=== PATIENT | male | born 1950 | race Caucasian/White ===

== ENCOUNTER 2018-07-07 10:53 | Emergency (ER) | payer MEDICARE, BC, SELFPAY ==
[2018-07-07 11:04] VITALS: BP 149/84; PULSE 67; RESP 18; TEMP 37.2; O2SAT 98
--- NOTE | 2018-07-07 11:09 | DI.RAD_ITS ---
SYMPTOM/DIAGNOSIS: FALL. PAIN TO DISTAL RADIUS LEFT WRIST: 07/07/18 Five views were obtained. There are marked degenerative changes of the carpus most prominent involving greater multangular first metacarpal joint. There is an osseous density projected over the dorsum of the carpus on the lateral view probably originating from the proximal carpal row. This may represent an old or acute injury. Clinical correlation requested regarding the exact site of the patient's injury. If clinically indicated, additional evaluation with CT could be considered to evaluate the carpal anatomy.
--- NOTE | 2018-07-07 11:09 | DI.RAD_ITS ---
SYMPTOM/DIAGNOSIS: FALL LEFT FOREARM: 07/07/18 Two views were obtained. No fracture is seen.
--- NOTE | 2018-07-07 11:11 | W.ED.GENAD ---
Discharge Plan Disposition Patient Disposition: HOME Condition: Stable Discharge Details Chief Complaint: Orthopedic Clinical Impression: Cellulitis Primary Care Provider: Stacey,Local ED Provider: Jose Eduardo Cummings Home Meds and New Rx's Prescriptions: New cephalexin [Keflex] 500 mg capsule 500 mg PO QID Qty: 27 RF: 0 Continued rosuvastatin [Crestor] 10 mg Tablet 10 mg PO DAILY RF: 0 multivitamin Tablet 1 tab PO DAILY RF: 0 ascorbic acid (vitamin C) [Vitamin C] 500 mg Tablet 500 mg PO DAILY RF: 0 aspirin [Aspir-81] 81 mg Tablet,Delayed Release (Dr/Ec) 81 mg PO DAILY RF: 0 zinc 50 mg Tablet PO DAILY RF: 0 Discharge Instructions Instructions: Cellulitis (ED) Additional Instructions: Please take your antibiotics as prescribed and return to the emergency department immediately for any new or significant worsening of symptoms including rapid spread of redness. Otherwise if symptoms are remaining stable and improving recommend follow-up with your primary care provider in the next 2-3 days Referrals: Primary Care Provider [Outside] (Please follow-up with your local [place] clinic) Discharge Data Discharge Date/Time-TO BE ENTERED AT DEPARTURE: 07/07/18 14:40 Medical Decision Making Patient presenting the emergency department for chief complaint of left wrist pain. Patient states on Saturday he had a fall on outstretched hand but had full range of motion and movement of the extremity after the fall. Then beginning yesterday evening he started having worsening discomfort and noted redness to the extremity. This has significantly worsened along with swelling and discomfort since yesterday evening. Patient denies any fever chills, other injury or trauma. Physical exam shows a erythematous swollen left wrist with pain to anatomical snuffbox along with pain to palpation of distal radius. Exam is otherwise unremarkable. Concern for acute fracture incised probability but given the patient stated normal range of motion and felt that it was a minor injury with then progressive swelling and erythema to the area cellulitis is also considered. Plan to check radiological imaging to rule out acute fracture and CBC to evaluate for possible cellulitis while I feel that this is less likely. Pending results patient given [place]. Review of radiological imaging and speaking with radiologist shows a possible bone fragment noted in the wrist and recommendation for CT imaging. Review of labs does show some concern for left shift. Reassessed hand and erythema continues to be present and upper forearm there is a continued concern for cellulitis. CT image of the wrist and forearm show no acute fracture and what appears to be an ossicle. Main concern is for cellulitis so patient placed up on Keflex 500 mg 4 times daily for 1 week and informed to follow-up with his local [place] clinic in the next 2-3 days for reassessment or return to emergency department immediately for reassessment for worsening symptoms that were thoroughly discussed with patient and family. After discussion of diagnosis and plan of care patient is no further needs, questions, or concerns and states clear understanding to return to the emergency department for any worsening symptoms. HPI General Mode of arrival: ambulatory. Date/Time Provider Initiated Documentation: 07/07/18 11:09. Limitations to Documentation: no limitations. Information obtained by: patient, family and RN notes reviewed. History of Present Illness 68 year old M presents to the emergency department with the chief complaint of Left wrist pain, described as severe, with intensity rated at >10. Quality is described as sharp and constant, and is localized to the left and upper extremity. Patient started experiencing this day(s) (3) and it has been constant. No relieving factors improve symptom(s), Movement worsens symptoms . Patient notes no other symptoms.. Related Data Home Medications Medication Instructions Recorded Confirmed ascorbic acid (vitamin C) [Vitamin 500 mg PO DAILY 07/07/18 07/07/18 C] aspirin [Aspir-81] 81 mg PO DAILY 07/07/18 07/07/18 cephalexin [Keflex] 500 mg PO QID #27 cap NS 07/07/18 multivitamin 1 tab PO DAILY 07/07/18 07/07/18 rosuvastatin [Crestor] 10 mg PO DAILY 07/07/18 07/07/18 zinc PO DAILY 07/07/18 Previous Rx's Medication Instructions Recorded cephalexin [Keflex] 500 mg PO QID #27 cap NS 07/07/18 Allergies Allergy/AdvReac Type Severity Reaction Status Date / Time No Known Allergies Allergy Unverified 07/07/18 11:13 General Stated Complaint: Trauma JAIRO: 3 Review of Systems Cardiovascular Denies syncope Musculoskeletal Reports as per HPI, Denies numbness and Denies tingling Integumentary/Breasts Reports erythema, Denies sores and Denies wounds Neurologic Denies syncope, Denies numbness and Denies tingling [facility] Medical History Hyperlipidemia (Chronic) Hypertension (Chronic) Social History Smoking/Tobacco Use Status: Former Tobacco Use Drug use: Rarely Substance use type: marijuana Do you feel safe at home: Yes Do you feel safe in your relationship?: Yes Exam Const General: cooperative and no acute distress Orientation: alert, awake and oriented x3 Resp Effort & Inspection: normal respiratory effort and able to speak in complete sentences Cardio Rate: regular rate Rhythm: regular rhythm Extrem Right upper extremity: normal to inspection Left upper extremity: elbow/forearm Details: normal to inspection and normal ROM; no tenderness and wrist Details: tenderness Location: of the distal radius, of the anatomic snuffbox and of the dorsal wrist, swelling Location: of the dorsal wrist and of the volar wrist, abnormal ROM Details: pain with active ROM and with range as follows (Patient has decreased flexion and extension of his wrist), warmth, normal vascular exam and radial pulse present; no abrasions, no lacerations, no ecchymosis and no penetrating wound
[2018-07-07] MEDS: HYDROcodone 5/Acetaminophen 325 TAB PO ×2 (11:15→14:38)
--- NOTE | 2018-07-07 11:16 | ED.GENADUL_ITS ---
Discharge Plan Disposition Patient Disposition: HOME Condition: Stable Discharge Details Chief Complaint: Orthopedic Clinical Impression: Cellulitis Primary Care Provider: Stacey,Local ED Provider: Jose Eduardo Cummings Home Meds and New Rx's Prescriptions: New cephalexin [Keflex] 500 mg capsule 500 mg PO QID Qty: 27 RF: 0 Continued rosuvastatin [Crestor] 10 mg Tablet 10 mg PO DAILY RF: 0 multivitamin Tablet 1 tab PO DAILY RF: 0 ascorbic acid (vitamin C) [Vitamin C] 500 mg Tablet 500 mg PO DAILY RF: 0 aspirin [Aspir-81] 81 mg Tablet,Delayed Release (Dr/Ec) 81 mg PO DAILY RF: 0 zinc 50 mg Tablet PO DAILY RF: 0 Discharge Instructions Instructions: Cellulitis (ED) Additional Instructions: Please take your antibiotics as prescribed and return to the emergency department immediately for any new or significant worsening of symptoms including rapid spread of redness. Otherwise if symptoms are remaining stable and improving recommend follow-up with your primary care provider in the next 2- 3 days Referrals: Primary Care Provider [Outside] (Please follow-up with your local [place] clinic) Discharge Data Discharge Date/Time-TO BE ENTERED AT DEPARTURE: 07/07/18 14:40 Medical Decision Making Patient presenting the emergency department for chief complaint of left wrist pain. Patient states on Saturday he had a fall on outstretched hand but had full range of motion and movement of the extremity after the fall. Then beginning yesterday evening he started having worsening discomfort and noted redness to the extremity. This has significantly worsened along with swelling and discomfort since yesterday evening. Patient denies any fever chills, other injury or trauma. Physical exam shows a erythematous swollen left wrist with pain to anatomical snuffbox along with pain to palpation of distal radius. Exam is otherwise unremarkable. Concern for acute fracture incised probability but given the patient stated normal range of motion and felt that it was a minor injury with then progressive swelling and erythema to the area cellulitis is also considered. Plan to check radiological imaging to rule out acute fracture and CBC to evaluate for possible cellulitis while I feel that this is less likely. Pending results patient given [place]. Review of radiological imaging and speaking with radiologist shows a possible bone fragment noted in the wrist and recommendation for CT imaging. Review of labs does show some concern for left shift. Reassessed hand and erythema continues to be present and upper forearm there is a continued concern for cellulitis. CT image of the wrist and forearm show no acute fracture and what appears to be an ossicle. Main concern is for cellulitis so patient placed up on Keflex 500 mg 4 times daily for 1 week and informed to follow-up with his local [place] clinic in the next 2-3 days for reassessment or return to emergency department immediately for reassessment for worsening symptoms that were thoroughly discussed with patient and family. After discussion of diagnosis and plan of care patient is no further needs, questions, or concerns and states clear understanding to return to the emergency department for any worsening symptoms. HPI General Mode of arrival: ambulatory . Date/Time Provider Initiated Documentation: 07/07/18 11:09 . Limitations to Documentation: no limitations . Information obtained by: patient, family and RN notes reviewed . History of Present Illness 68 year old M presents to the emergency department with the chief complaint of Left wrist pain, described as severe, with intensity rated at >10. Quality is described as sharp and constant, and is localized to the left and upper extremity. Patient started experiencing this day(s) (3) and it has been constant. No relieving factors improve symptom(s), Movement worsens symptoms . Patient notes no other symptoms.. Related Data Home Medications Medication Instructions Recorded Confirmed ascorbic acid (vitamin C) [Vitamin 500 mg PO DAILY 07/07/18 07/07/18 C] aspirin [Aspir-81] 81 mg PO DAILY 07/07/18 07/07/18 cephalexin [Keflex] 500 mg PO QID #27 cap NS 07/07/18 multivitamin 1 tab PO DAILY 07/07/18 07/07/18 rosuvastatin [Crestor] 10 mg PO DAILY 07/07/18 07/07/18 zinc PO DAILY 07/07/18 Previous Rx's Medication Instructions Recorded cephalexin [Keflex] 500 mg PO QID #27 cap NS 07/07/18 Allergies Allergy/AdvReac Type Severity Reaction Status Date / Time No Known Allergies Allergy Unverified 07/07/18 11:13 General Stated Complaint: Trauma JAIRO: 3 Review of Systems Cardiovascular Denies syncope Musculoskeletal Reports as per HPI, Denies numbness and Denies tingling Integumentary/Breasts Reports erythema, Denies sores and Denies wounds Neurologic Denies syncope, Denies numbness and Denies tingling [facility] Medical History Hyperlipidemia (Chronic) Hypertension (Chronic) Social History Smoking/Tobacco Use Status: Former Tobacco Use Drug use: Rarely Substance use type: marijuana Do you feel safe at home: Yes Do you feel safe in your relationship?: Yes Exam Const General: cooperative and no acute distress Orientation: alert, awake and oriented x3 Resp Effort & Inspection: normal respiratory effort and able to speak in complete sentences Cardio Rate: regular rate Rhythm: regular rhythm Extrem Right upper extremity: normal to inspection Left upper extremity: elbow/forearm Details: normal to inspection and normal ROM; no tenderness and wrist Details: tenderness Location: of the distal radius, of the anatomic snuffbox and of the dorsal wrist, swelling Location: of the dorsal wrist and of the volar wrist, abnormal ROM Details: pain with active ROM and with range as follows (Patient has decreased flexion and extension of his wrist), warmth, normal vascular exam and radial pulse present; no abrasions, no lacerations, no ecchymosis and no penetrating wound
[2018-07-07 11:39] LABS: Abs Immature Grans 0.02 k/cumm (0.0-0.09); Absolute Basophil Count 0.03 k/cumm (0.0-0.2); Absolute Eosinophil Count 0.08 k/cumm (0.0-0.7); Absolute Lymphocyte Count 1.12 k/cumm (1.2-3.4); Absolute Monocyte Count 1.01 k/cumm (0.11-0.7); Absolute Neutrophil Count 7.94 k/cumm (1.2-6.7); Basophils % 0.3; Eosinophils % 0.8; HCT 41.4 % (40.0-50.0); HGB 14.2 g/dL (13.5-17.5); Immature Grans % 0.2; Mean Corp. HGB Concentration 34.3 g/dL (32.0-36.0); Mean Corpuscular Hemoglobin 31.7 pg (27.0-33.0); Mean Corpuscular Volume 92.4 fL (80-95); Mean Platelet Volume 11.6 fL (8.0-11.0); Monocytes % 9.9; Neutrophils % 77.8; Platelet Count 139 x1000/uL (130-400); RBC 4.48 m/cumm (4.50-6.00); RBC Distribution Width 12.1 % (11.8-14.1)
--- NOTE | 2018-07-07 12:43 | DI.CT_ITS ---
SYMPTOM/DIAGNOSIS: FELL, LT WRIST PAIN LEFT WRIST CT: CT examination of the wrist was performed utilizing multi slice acquisition and multi planar reconstruction. There are degenerative changes of the carpus, most marked at the greater multangular first metacarpal joint. No acute fracture is identified. There is a well corticated, dorsally located ossicle adjacent to the lunate near the navicular lunate joint which appears to correspond with the osseous fragment identified on plain films. This does not represent an acute fracture. CONCLUSION: No evidence of acute carpal fracture.
[2018-07-07] MEDS: Cephalexin 500 MG CAP PO (14:39)
== END 2018-07-07 14:40 | disposition home or self-care (01) ==
PROVIDERS: Emergency Provider Nurse Practitioner Family
DX: L03.114 Cellulitis of left upper limb (principal); R60.0 Localized edema; W18.30XA Fall on same level, unspecified, initial encounter; I10 Essential (primary) hypertension
CPT/HCPCS: 36415; 99284; 73090; 73110; 73200; 85025